=== PATIENT | male | born 1980 | race Caucasian/White ===

== ENCOUNTER 2021-07-23 05:43 | Emergency (ER) | payer SELFPAY ==
[~2021-07-23] VITALS: Ht 177.8 cm; Wt 160.0 kg
[2021-07-23] MEDS ORDERED: ONDANSETRON HCL 4MG/2ML INJ IV STA (06:11)
[2021-07-23] MEDS ORDERED: KETOROLAC 30MG/ML VIAL IV STA (06:11)
[2021-07-23] MEDS ORDERED: SODIUM CHLORIDE 0.9% 1,000 ML IV ONE (06:15)
[2021-07-23 06:53] LABS: BASOPHILS % 0.6 % (0.0-2.0); EOSINOPHILS % 0.6 % (0.0-5.0); HEMOGLOBIN. 12.8 g/dL (14.0-18.0); LYMPHOCYTES % 8.8 % (20.0-50.0); MEAN CORPUSCULAR HEMOGLOBIN 20.2 pg (28.0-32.0); MEAN PLATELET VOLUME 8.9 fl (7.4-10.4); MONOCYTES % 6.4 % (2.0-8.0); NEUTROPHILS % 83.6 % (40.0-76.0); PLATELET 255 x1000/uL (130-400); RED BLOOD CELL COUNT 6.35 mill/uL (4.7-6.1); RED CELL DISTRIBUTION WIDTH 15.9 % (11.6-14.6)
[2021-07-23 06:58] LABS: CHLORIDE 105 mEq/L (98-107)
[2021-07-23 07:04] LABS: CLARITY URINE CLEAR (CLEAR); COLOR URINE YELLOW (YELLOW); KETONES URINE NEGATIVE (NEGATIVE); LEUKOCYTE ESTERASE URINE NEGATIVE (NEGATIVE); NITRITE URINE NEGATIVE (NEGATIVE); OCCULT BLOOD URINE NEGATIVE (NEGATIVE); PH URINE 6.5 (4.5-8.0); PROTEIN URINE TRACE (NEGATIVE); SPECIFIC GRAVITY URINE 1.014 (1.005-1.030); UROBILINOGEN URINE 0.2 E.U./dL (0.2-1.0)
[2021-07-23 07:05] LABS: PROTHROMBIN TIME 10.5 sec (9.6-11.0)
[2021-07-23 07:18] LABS: PLATELET ESTIMATE NORMAL
[2021-07-23] MEDS ORDERED: CEPHALEXIN 250MG CAPSULE PO ONE (08:45)
[2021-07-23] MEDS ORDERED: MORPHINE SULFATE 2 MG/ML CPJ (NOT FOR IM USE) IV NR (08:45)
[2021-07-23] MEDS ORDERED: IBUP-2029 MT (08:47)
[2021-07-23] MEDS ORDERED: TAMS-11 MT (08:47)
[2021-07-23] MEDS ORDERED: CEPH500C2 MT (08:47)
[2021-07-23] MEDS ORDERED: HYDR-4001 MT (08:48)
[2021-07-23] MEDS ORDERED: TAMSULOSIN HCL 0.4MG SR CAPSULE PO NR (09:00)
[2021-07-23 10:04] VITALS: BP 156/89
== END 2021-07-23 10:07 | disposition home or self-care (01) ==
LOC: ER 06:13
DX: N20.1 Calculus of ureter (principal); E66.01 Morbid (severe) obesity due to excess calories; Z68.43 Body mass index [BMI] 50.0-59.9, adult
CPT/HCPCS: 36415; 74176; 80053; 81003; 83690; 85025; 85610; 96361; 96374; 96375; 99284; J1885; J2270; J2405; J7030